=== PATIENT | male | born 1955 | race Caucasian/White ===

== ENCOUNTER 2020-06-13 19:13 | Emergency (ER) | payer SELFPAY ==
[~2020-06-13] VITALS: Ht 170.2 cm; Wt 59.9 kg
--- NOTE | 2020-06-13 19:17 | NUR ---
PT TAKEN TO BED 12 VIA [facility]NEY.
[2020-06-13] MEDS ORDERED: NACL 0.9% 1,000 ML IV ONE (19:20)
[2020-06-13 19:23] VITALS: BP 120/76
--- NOTE | 2020-06-13 19:30 | NUR ---
Dr. Abdalla examining patient.
--- NOTE | 2020-06-13 19:30 | NUR ---
biba for heat exhaustion. pt was working out in the sun all day today and was seen fumbling on the ground by bystanders. bp initially in the field 54/37. pt given NS Bolus, bp now 120/76. pupils pinpoint. given 0.5 of narcan in the field. pt is a/o x 4. no LOC reported. gcs 15 pmhx: danilo brooksa
[2020-06-13 19:58] VITALS: BP 113/72
--- NOTE | 2020-06-13 20:41 | NUR ---
Patient discharged with v/s stable. Written and verbal after care instructions given and explained. Patient verbalized understanding. Ambulatory with steady gait. All questions addressed prior to discharge. Advised to follow up with PMD.
== END 2020-06-13 20:41 | disposition home or self-care (01) ==
LOC: MED 19:13 → EDBD 19:13 → MED 20:41
DX: E86.0 Dehydration (principal); I95.9 Hypotension, unspecified; Z98.890 Other specified postprocedural states
CPT/HCPCS: 96360; 99283; J7030